=== PATIENT | female | born 1965 ===

== ENCOUNTER → 2019-05-12 | Outpatient (CLI) | payer SELFPAY ==
[2019-05-13 22:06] LABS: CHLAMYDIA TRACHOMATIS, NAA Negative (Negative); NEISSERIA GONORRHOEAE, NAA Negative (Negative)
== END | disposition home or self-care (01) ==
LOC: LAB 16:19 → LAB SHORT 16:19
PROVIDERS: Family Medicine
DX: R30.0 Dysuria (principal)
CPT/HCPCS: 87086; 87491; 87591

== ENCOUNTER → 2024-11-09 | Outpatient (CLI) | payer OTHER | LOC: LAB SHORT 17:44 → LAB 17:44 | DX: R30.0 Dysuria (principal) | CPT/HCPCS: 87086 ==